=== PATIENT | male | born 1990 | race Caucasian/White ===

== ENCOUNTER 2017-05-23 02:39 | Emergency (ER) | payer BC ==
[~2017-05-23] VITALS: Ht 172.7 cm; Wt 83.9 kg
[2017-05-23 02:37] VITALS: BP 141/96
[2017-05-23] MEDS ORDERED: IBUPROFEN600 MG ORAL (03:20)
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
[2017-05-23 03:45] VITALS: BP 137/97
--- NOTE | 2017-05-23 11:35 | Diagnostic Imaging Report ---
Indication: Pain 3 views of the left knee were obtained. Findings: No acute fracture, malalignment, or joint effusion are identified. Joint space is relatively well-maintained. Bone mineralization is within normal limits for age. Impression: Negative exam
--- NOTE | 2017-05-23 11:36 | Diagnostic Imaging Report ---
Indication: Pain Findings: 3 views of the right elbow were obtained. No acute fractures, malalignment, erosions or periostitis are identified. Bone mineralization is within normal limits. Soft tissues are unremarkable. Impression: Negative examination of the elbow.
== END 2017-05-23 03:46 | disposition home or self-care (01) ==
LOC: EDBD 02:39 → EMR 02:52
DX: M54.6 Pain in thoracic spine (principal); S50.01XA Contusion of right elbow, initial encounter; S80.02XA Contusion of left knee, initial encounter; V49.9XXA Car occupant (driver) (passenger) injured in unspecified traffic accident, initial encounter; Y93.9 Activity, unspecified; Y92.410 Unspecified street and highway as the place of occurrence of the external cause; Z88.0 Allergy status to penicillin
CPT/HCPCS: 99284

== ENCOUNTER 2017-05-26 15:07 | Emergency (ER) | payer BC ==
[~2017-05-26] VITALS: Ht 172.7 cm; Wt 83.9 kg
[~2017-05-26 15:07] MED LIST: IBUPROFEN600 MG ORAL
[2017-05-26 15:49] VITALS: BP 131/85
[2017-05-26] MEDS ORDERED: Famotidine 20 MG/ 2ML VIAL IVP ONE (16:00)
[2017-05-26] MEDS ORDERED: Dicyclomine HCl 10mg/5ml oral soln ORAL ONE (16:00)
[2017-05-26] MEDS ORDERED: Mylanta II UD 30ml ORAL ONE (16:00)
[2017-05-26] MEDS ORDERED: Lidocaine 2% Visc 15ml soln ORAL ONE (16:00)
[2017-05-26 16:16] LABS: BASOPHILS % (AUTO) 0.8 % (0.0-2.0); EOSINOPHILS % (AUTO) 0.1 % (0.0-3.0); LYMPHOCYTES % (AUTO) 11.4 % (20.0-45.0); MEAN CORPUSCULAR HEMOGLOBIN 31.1 PG (27.0-31.0); MEAN CORPUSCULAR VOLUME 94 FL (80-99); MEAN PLATELET VOLUME 8.3 FL (6.5-10.1); MONOCYTES % (AUTO) 8.3 % (1.0-10.0); NEUTROPHILS % (AUTO) 79.4 % (45.0-75.0); PLATELET COUNT 197 K/UL (150-450); RED CELL DISTRIBUTION WIDTH 11.1 % (11.6-14.8); WHITE BLOOD COUNT 9.4 K/UL (4.8-10.8)
[2017-05-26 16:52] LABS: ALANINE AMINOTRANSFERASE 66 U/L (3-41); ALBUMIN/GLOBULIN RATIO 1.1 (1.0-2.7); ANION GAP 13 (5-15); ASPARTATE AMINO TRANSFERASE 62 U/L (5-40); CALCIUM 9.8 mg/dL (8.6-10.2); CARBON DIOXIDE 29 mEQ/L (20-30); CHLORIDE 96 mEQ/L (98-107); CREATININE 1.1 mg/dL (0.7-1.2); GLOMERULAR FILTRATION RATE > 60 mL/min (>60); HEMOLYSIS 3; POTASSIUM 3.6 mEQ/L (3.4-4.9); SODIUM 138 mEQ/L (135-145); TOTAL PROTEIN 8.3 g/dL (6.6-8.7)
[2017-05-26 17:02] LABS: CKMB < 1.5 ng/mL (< 6.7)
--- NOTE | 2017-05-26 18:10 | Emergency Room Report ---
History of Present Illness General Chief Complaint: Abdominal Pain Source: Patient, Medical Record Present Illness HPI 27-year-old male presents to ED for evaluation. States since 2 days he is having cramping abdominal pain and bloody diarrhea. Started after eating [place] food. Pain is a 5/10, cramping, nonradiating. Notes blood in mucus in his stool. Denies fevers or chills. Denies recent travel or antibiotic use. Denies nausea or vomiting. No other aggravating relieving factors. Denies any other associated symptoms Allergies: Coded Allergies: PENICILLINS (Verified Allergy, Unknown, 05/23/17) Patient History Past Medical History: none Past Surgical History: none Pertinent Family History: none Social History: Denies: alcohol use, drug use, smoking Immunizations: UTD Reviewed Nursing Documentation: PMH: Agreed, PSxH: Agreed Nursing Documentation-PMH Past Medical History: No History, Except For Review of Systems All Other Systems: negative except mentioned in HPI Physical Exam Vital Signs Date Time Temp Pulse Resp B/P Pulse Ox O2 Delivery O2 Flow Rate FiO2 05/26/17 15:14 97.5 103 18 128/90 97 Room Air Sp02 EP Interpretation: reviewed, normal General Appearance: no apparent distress, alert, GCS 15, non-toxic Head: normocephalic, atraumatic Eyes: bilateral eye PERRL, bilateral eye normal inspection ENT: hearing grossly normal, normal pharynx, no angioedema, normal voice Neck: full range of motion, supple/symm/no masses Respiratory: chest non-tender, lungs clear, normal breath sounds, speaking full sentences Cardiovascular #1: regular rate, rhythm, no edema Cardiovascular #2: 2+ carotid (R), 2+ carotid (L), 2+ radial (R), 2+ radial (L) , 2+ dorsalis pedis (R), 2+ dorsalis pedis (L) Gastrointestinal: normal bowel sounds, soft, non-distended, no guarding, no rebound Rectal: deferred Genitourinary: normal inspection, no CVA tenderness Musculoskeletal: back normal, gait/station normal, normal range of motion, non- tender Neurologic: alert, oriented x3, responsive, motor strength/tone normal, sensory intact, speech normal Psychiatric: judgement/insight normal, memory normal, mood/affect normal, no suicidal/homicidal ideation Reflexes: 3+ bicep (R), 3+ bicep (L), 3+ tricep (R), 3+ tricep (L), 3+ knee (R) , 3+ knee (L) Skin: normal color, no rash, warm/dry, well hydrated Lymphatic: no adenopathy Medical Decision Making Diagnostic Impression: Primary Impression: Colitis ER Course Hospital Course 27-year-old male presents ED complaining of cramping abdominal pain, bloody stool Differential diagnosis includes-gastroenteritis, diverticulitis, colitis Clinical course Patient placed on stretcher. After initial history and physical I ordered labs , IV fluids, CT scan Labs - no leukocytosis, electrolytes ok, LFTs minimally elevated CT scan shows colitis We will discharge with antibiotics. Given Cipro and Flagyl in ED. On reassessment patient feels better I feel this is a highly complex case requiring extensive working including EKG/ Rhythm strip, Xray/CT/US, Blood/urine lab work, repeat exams while in ED, and administration of strong opiates/narcotics for pain control, admission to hospital or close patient follow up. Diagnosis - colitis Stable and discharged to home. With prescription for Cipro, Flagyl, Bentyl. Followup with PMD. Return to ED if symptoms recur or worsen Labs Test 05/26/17 15:55 05/26/17 16:16 White Blood Count 9.4 K/UL (4.8-10.8) Red Blood Count 5.50 M/UL (4.70-6.10) Hemoglobin 17.1 G/DL (14.2-18.0) Hematocrit 51.8 % (42.0-52.0) Mean Corpuscular Volume 94 FL (80-99) Mean Corpuscular Hemoglobin 31.1 PG (27.0-31.0) Mean Corpuscular Hemoglobin Concent 33.0 G/DL (32.0-36.0) Red Cell Distribution Width 11.1 % (11.6-14.8) Platelet Count 197 K/UL (150-450) Mean Platelet Volume 8.3 FL (6.5-10.1) Neutrophils (%) (Auto) 79.4 % (45.0-75.0) Lymphocytes (%) (Auto) 11.4 % (20.0-45.0) Monocytes (%) (Auto) 8.3 % (1.0-10.0) Eosinophils (%) (Auto) 0.1 % (0.0-3.0) Basophils (%) (Auto) 0.8 % (0.0-2.0) Sodium Level 138 mEQ/L (135-145) Potassium Level 3.6 mEQ/L (3.4-4.9) Chloride Level 96 mEQ/L (98-107) Carbon Dioxide Level 29 mEQ/L (20-30) Anion Gap 13 (5-15) Blood Urea Nitrogen 11 mg/dL (7-23) Creatinine 1.1 mg/dL (0.7-1.2) Estimat Glomerular Filtration Rate > 60 mL/min (>60) Glucose Level 107 mg/dL (74-106) Calcium Level 9.8 mg/dL (8.6-10.2) Total Bilirubin 0.5 mg/dL (0.0-1.2) Aspartate Amino Transf (AST/SGOT) 62 U/L (5-40) Alanine Aminotransferase (ALT/SGPT) 66 U/L (3-41) Alkaline Phosphatase 82 U/L (40-129) Creatine Kinase MB < 1.5 ng/mL (< 6.7) Total Protein 8.3 g/dL (6.6-8.7) Albumin 4.4 g/dL (3.5-5.2) Globulin 3.9 g/dL Albumin/Globulin Ratio 1.1 (1.0-2.7) Lactic Acid Level 0.90 mmol/L (0.66-2.22) CT/MRI/US Diagnostic Results CT/MRI/US Diagnostic Results : Imaging Test Ordered: CT A/P Impression colitis Last Vital Signs Date Time Temp Pulse Resp B/P Pulse Ox O2 Delivery O2 Flow Rate FiO2 05/26/17 15:49 97.6 94 20 131/85 99 Room Air Status: improved Disposition: HOME, SELF-CARE Condition: Stable Scripts Metronidazole* (FLAGYL*) 500 Mg Tablet 500 MG ORAL THREE TIMES A DAY, #21 TAB Prov: JOS PINZON M.D. 05/26/17 Ciprofloxacin Hcl* (CIPROFLOXACIN HCL*) 500 Mg Tablet 500 MG ORAL Q12H, #14 TAB 0 Refills Prov: JOS PINZON M.D. 05/26/17 Dicyclomine Hcl* (BENTYL*) 10 Mg Capsule 10 MG ORAL FOUR TIMES A DAY, #20 CAP Prov: JOS PINZON M.D. 05/26/17 Referrals: NOT CHOSEN [facility]/,REFERRING (PCP) JOS PINZON M.D. May 26, 2017 18:10
[2017-05-26 18:45] VITALS: BP 111/71
[2017-05-26] MEDS ORDERED: metroNIDAZOLE 500mg tab ORAL ONE (19:00)
[2017-05-26] MEDS ORDERED: Ciprofloxacin 500mg tab ORAL ONE (19:00)
[2017-05-26] MEDS ORDERED: CIPROFLOXACIN500 M2 ORAL (19:03)
[2017-05-26] MEDS ORDERED: BENTYL10 MG ORAL (19:03)
[2017-05-26] MEDS ORDERED: METRONIDAZOLE500 MG ORAL (19:03)
[2017-05-26 19:30] VITALS: BP 131/85
--- NOTE | 2017-05-27 09:20 | Diagnostic Imaging Report ---
Indications: Crampy abdominal pain, bleeding Technique: Continuous helical CT imaging of the abdomen and pelvis was performed with automatic exposure control following administration of nonionic IV contrast only, on a Siemens sensation [address] scanner. Axial, coronal, sagittal images were reconstructed at 5 mm slice thickness. No oral contrast was administered per requesting physician's order, despite no contraindications listed in either submitted clinical data or tech note.. CTDI volume(s): 20 mGy Total DLP: 1132 mGy-cm Findings: Comparison: None Lack of oral contrast limits evaluation of gastrointestinal tract, nondilated throughout. Appendix unremarkable. Descending colon to rectum collapse, further limiting evaluation. Mild stranding surrounds the descending and sigmoid colon. No extraluminal gas or fluid collections identified. Liver, gallbladder, pancreas, spleen, adrenal glands, kidneys, ureters, urinary bladder, uterus, bilateral adnexal regions, vascular structures, retroperitoneum, mesentery, remainder visualized abdominopelvic anatomy unremarkable. Lung bases and adjacent pleural surfaces clear. S-shaped scoliosis in thoracolumbar spine.. IMPRESSION: Limited examination of GI tract due to technical factors described, with suggestion of left colitis. Repeat CT scan with full oral and IV contrast preparation recommended for more complete evaluation, as clinically indicated Scoliosis This correlates with Dr. Dash's preliminary report.
== END 2017-05-26 19:30 | disposition home or self-care (01) ==
LOC: EMR 15:40
DX: K52.9 Noninfective gastroenteritis and colitis, unspecified (principal); Z88.0 Allergy status to penicillin
CPT/HCPCS: 36415; 74177; 80053; 82553; 83605; 85025; 87040; 87045; 87181; 87324; 96361; 96374; 99284; Q9967; S0028